=== PATIENT | male | born 2000 | race African-American/Black ===

== ENCOUNTER 2022-01-12 09:37 | Emergency (ER) | payer SELFPAY ==
[2022-01-12] MEDS ORDERED: Metoclopramide HCl 10 MG TAB ONE (10:12)
[2022-01-12] MEDS ORDERED: Ibuprofen 200 MG TAB ONE (10:13)
== END 2022-01-12 11:17 | disposition home or self-care (01) ==
LOC: CSHERS 09:37
DX: G43.909 Migraine, unspecified, not intractable, without status migrainosus (principal)
CPT/HCPCS: 99283

== ENCOUNTER 2022-03-21 18:58 | Emergency (ER) | payer SELFPAY, OTHER ==
[2022-03-21] MEDS ORDERED: Ketorolac Tromethamine 30 MG/ML VIAL ONE (20:01)
== END 2022-03-21 20:38 | disposition home or self-care (01) ==
LOC: CSHERS 18:58
DX: M62.838 Other muscle spasm (principal); V89.2XXA Person injured in unspecified motor-vehicle accident, traffic, initial encounter
CPT/HCPCS: 96372; J1885